=== PATIENT | female | born 1970 | race Asian ===

== ENCOUNTER 2017-12-05 13:59 | Outpatient (CLI) | payer OTHER ==
--- NOTE | 2017-12-07 12:03 | Mammography Report ---
DIGITAL SCREENING MAMMOGRAM: 12/05/2017 TECHNIQUE: Bilateral digital CC, exaggerated CC and MLO projections are performed. COMPARISON: 03/20/2015, 04/08/2014, 05/18/2013, 09/29/2012 and 09/18/2012. FINDINGS: There are scattered fibroglandular densities. There is no dominant mass, architectural distortion, skin thickening, suspicious microcalcifications or interval change. IMPRESSION: NEGATIVE. BI-RADS CATEGORY 1 - NEGATIVE. RETURN TO ROUTINE SCREENING IN 12 MONTHS. STANDARD QUALIFYING STATEMENTS: 1. This examination was reviewed with the aid of Computer-Aided Detection (CAD). 2. A negative or benign imaging report should not delay biopsy if clinically suspicious findings are present. Consider surgical consultation if warranted. More than 5% of cancers are not identified by imaging. 3. Dense breasts may obscure an underlying neoplasm. TD: 12/07/2017 11:21
== END 2017-12-05 14:00 | disposition home or self-care (01) ==
LOC: DI.S 13:59
PROVIDERS: ATTEND Physician Assistant
DX: Z12.31 Encounter for screening mammogram for malignant neoplasm of breast (principal)
CPT/HCPCS: 77067

== ENCOUNTER 2019-02-28 14:34 | Outpatient (CLI) | payer OTHER ==
--- NOTE | 2019-03-01 08:19 | Mammography Report ---
Reason: SCREENING MAMMO Procedure Date: 02/28/2019 Accession Number: [id number] / [id number] Procedure: [facility] - Screening Mammo Dig Bilat CPT Code: FULL RESULT: EXAM: Screening Mammo Dig Bilat DATE: 02/28/2019 2:55 PM CLINICAL HISTORY: Screening encounter. History of late childbearing. TECHNIQUE: (B) - Bilateral CC, laterally exaggerated CC, MLO views were obtained. COMPARISON: 12/05/2017 through 05/18/2013. PARENCHYMAL PATTERN: (D) - The breast(s) demonstrate(s) heterogeneously dense fibroglandular parenchyma. FINDINGS: There are no suspicious masses, calcifications, or areas of distortion. IMPRESSION: Negative examination. BI-RADS category 1. RECOMMENDATION: (ANNUAL) - Recommend routine annual screening mammography. BI-RADS CATEGORY: (1) - Negative. STANDARD QUALIFYING STATEMENTS: 1. This examination was reviewed with the aid of Computer-Aided Detection (CAD). 2. A negative or benign imaging report should not preclude biopsy if clinically suspicious findings are present. 3. Dense breasts may obscure an underlying neoplasm. 4. This examination was reviewed without the aid of 3D breast imaging (tomosynthesis).
== END 2019-02-28 14:35 | disposition home or self-care (01) ==
LOC: DI.S 14:34
DX: Z12.31 Encounter for screening mammogram for malignant neoplasm of breast (principal)
CPT/HCPCS: 77067

== ENCOUNTER 2020-03-21 17:21 | Outpatient (CLI) | payer OTHER ==
--- NOTE | 2020-03-21 21:15 | Ultrasound Report ---
PROCEDURE: Pelvic w/Transvaginal INDICATIONS: ABD PAIN TECHNIQUE: Real-time scanning was performed of the pelvic organs, with image documentation. Additional endovagi nal scanning was necessary due to incomplete visualization of the adnexal and endometrial structures by transabdominal scanning. COMPARISON: None. FINDINGS: Transabdominal scanning: Limited scanning through the kidneys shows no hydronephrosis. A physiologic amount of adnexal fluid is noted. Endovaginal scanning: Uterus: Uterus is normal in size at 6.9 x 3.9 x 4.8 cm. The endometrium measures 4 mm in combined t hickness. An intrauterine device is seen in expected position in the endometrial canal. Ovaries: The right ovary measures 2.1 x 1.1 x 1.6 cm with a volume of 2 mL. A right ovarian follicle is seen measuring up to 9 mm in maximum dimension. The left ovary measures 4.2 x 2.7 x 3.1 cm with volume of 18 mL. A simple left ovarian cyst measures 2.5 x 2.3 x 2.8 cm. IMPRESSION: 1. Intrauterine device in expected position within the endometrium. 2. Left ovarian simple cyst measures 3.5 cm in maximum dimension. No dedicated follow-up imaging is required. Reviewed by: Tin Lagunas MD on 03/21/2020 9:14 PM PDT Approved by: Tin Lagunas MD on 03/21/2020 9:14 PM PDT Station ID: [id number]
== END 2020-03-21 17:22 | disposition home or self-care (01) ==
LOC: DI 17:21
PROVIDERS: ATTEND Nurse Practitioner Family
DX: R10.9 Unspecified abdominal pain (principal); N83.292 Other ovarian cyst, left side; Z97.5 Presence of (intrauterine) contraceptive device
CPT/HCPCS: 76830; 76856